=== PATIENT | female | born 1935 | race Caucasian/White ===

== ENCOUNTER 2016-11-17 06:01 | Day surgery (SDC) | payer MEDICARE, OTHER ==
--- NOTE | 2016-11-14 11:51 | RAD ---
EXAM DESCRIPTION: Chest,2 Views CLINICAL HISTORY: pre op COMPARISON: None FINDINGS: Two-view chest x-ray shows cardiomediastinal silhouette and pulmonary vasculature to be within normal limits. Moderate calcifications of the thoracic aorta with tortuosity of the aorta is seen. The lungs are normally aerated. Chronic appearing increased interstitial markings to the lungs are seen. Costophrenic angles are sharp. Mild spondylitic changes of the spine are noted. IMPRESSION: No radiographic evidence of acute cardiopulmonary disease. Electronically signed by: Fabiano Ashley MD 11/14/2016 11:50 AM [employer] BU[employer]
[2016-11-17] MEDS ORDERED: SODIUM CHL 0.9% 100ML MINI-BAG 100 ML IVPB ONE (06:55)
[2016-11-17] MEDS ORDERED: ceFAZolin SODIUM 1 GM VIAL ONE (06:55)
[2016-11-17] MEDS ORDERED: LACTATED RINGERS 1,000 ML ONE (06:55)
[2016-11-17] MEDS ORDERED: HEPARIN SODIUM (PORCINE) 10,000 UNITS/ML VIAL ONE (07:12)
[2016-11-17] MEDS ORDERED: BUPIVACAINE 0.25% W/EPI 50 ML VIAL INJ ONE (07:12)
[2016-11-17] MEDS ORDERED: CARBOXYMETHYLCELLULOSE 0.5% 0.4 ML UD ONE (08:00)
[2016-11-17] MEDS ORDERED: fentaNYL CITRATE INJ 50 MCG/ML AMP ONE (08:00)
[2016-11-17] MEDS ORDERED: ROCURONIUM BROMIDE 10 MG/ML VIAL ONE (08:00)
[2016-11-17] MEDS ORDERED: MORPHINE SULFATE INJ 10 MG/ML VIAL ONE (08:46)
--- NOTE | 2016-11-17 09:54 | OP ---
DATE OF PROCEDURE: 11/17/16 PREOPERATIVE DIAGNOSIS: 1. Symptomatic cholelithiasis. POSTOPERATIVE DIAGNOSIS: 1. Symptomatic cholelithiasis. 2. Chronic cholecystitis. PROCEDURE: 1. Laparoscopic cholecystectomy with intraoperative cholangiography using fluoroscopy. SURGEON: Davonte Garcia MD. BLOCK SORTER: None. ANESTHESIA: Local infiltration of 0.25% Marcaine with epinephrine and general endotracheal anesthesia. INDICATION: The patient is an 81-year-old female who has had right upper quadrant and right flank pain with bloating especially associated with fatty foods. She has had gallstones for a long time. These symptoms have recurred recently. The patient was brought to the Surgical Suite today for cholecystectomy after the risks, benefits and alternatives to the procedure were discussed and accepted. FINDINGS: The gallbladder wall was somewhat thickened. There was one large stone. Intraoperative cholangiography revealed free flow into the duodenum with no filling defects or strictures noted. No other significant pathology was identified in the abdomen. DESCRIPTION OF PROCEDURE: After adequate general endotracheal anesthesia was obtained, the patient was prepped and draped in the usual sterile manner. Surgical time-out was taken. At this point, the infraumbilical area was infiltrated with local anesthesia. A transverse incision was made and carried down through the subcutaneous tissue to the midline fascia. Traction sutures were placed on either side of the midline. A small incision was made in the midline fascia and the peritoneum was opened bluntly. Mary trocar was introduced under direct vision into the abdominal cavity and fixed in place with the traction sutures. CO2 was then insufflated until a pressure of 12 mmHg was reached and the abdomen was tympanitic in all four quadrants. When this was done, the laparoscope was introduced. The abdomen was inspected with the previously noted findings. The patient was then placed in reverse Trendelenburg position and the upper abdominal ports were placed under direct vision. The gallbladder was grasped, retracted anteriorly and laterally. The neck of the gallbladder was retracted laterally. The triangle of Calot was then explored using blunt dissection with the cystic duct and cystic artery identified and isolated. The cystic duct was hemoclipped once proximally. The cystic artery was hemoclipped twice proximally and once distally. A small incision was made in the cystic duct. With some difficulty, it was eventually cannulated. Cholangiograms revealed free flow into the duodenum with no filling defects or strictures noted with approximately 1.5 cm of duct left before the common bile duct. When the cholangiograms were noted to be within normal limits, the cystic duct catheter was removed. The cystic duct was hemoclipped three times distally and divided between the hemoclips. The cystic artery was divided. The gallbladder was then dissected free from the gallbladder bed of the liver using electrocautery. The gallbladder was removed from the infraumbilical port site in the usual manner under direct vision. When this was done, the subhepatic space and subphrenic space were irrigated copiously with saline. The effluent was noted to be clear. The jose hepatis was inspected and no bleeding or bile leak was identified. The upper abdominal ports were removed and good hemostasis was noted. At this point, the CO2, the laparoscope and the infraumbilical port were removed. The infraumbilical port site fascia was approximated with a single [id number] suture of 0 Vicryl. Subcutaneous tissue was irrigated with saline. Skin edges were approximated with 4-0 Vicryl subcuticular sutures, benzoin and Steri- Strips. Sterile dressings were applied. The patient was awakened and taken to the Recovery Room in stable condition. Estimated blood loss was less than 50 mL. All sponge, needle and instrument counts were correct. #[id number] [facility]
[2016-11-17 11:30] VITALS: BP 155/82; TEMP 98.2; O2SAT 97
[2016-11-17] MEDS ORDERED: ePHEDrine SULF 50 MG/ML IV ONE (12:00)
[2016-11-17] MEDS ORDERED: LABETALOL INJ 5 MG/ML VIAL IV ONE (12:00)
[2016-11-17] MEDS ORDERED: PROPOFOL 200 MG/20 ML VIAL IV ONE (12:00)
[2016-11-17] MEDS ORDERED: LIDOCAINE 1% 10 ML VIAL INJ ONE (12:00)
[2016-11-17] MEDS ORDERED: DEXAMETHASONE INJ 10 MG/ML VIAL IV ONE (12:00)
[2016-11-17] MEDS ORDERED: raNITIdine HCL INJ 25 MG/ML VIAL IV ONE (12:00)
== END 2016-11-17 11:05 | disposition home or self-care (01) ==
LOC: AMB 06:01
PROVIDERS: ATTEND Surgery
DX: K80.10 Calculus of gallbladder with chronic cholecystitis without obstruction (principal); G25.81 Restless legs syndrome; R94.31 Abnormal electrocardiogram [ECG] [EKG]; Z96.653 Presence of artificial knee joint, bilateral; Z88.8 Allergy status to other drugs, medicaments and biological substances; Z79.899 Other long term (current) drug therapy
CPT/HCPCS: 00790; 36415; 47563; 71020; 76000; 80053; 81001; 84132; 85025; 88304; J0690; J1100; J1644; J2270; J2780; J3010; J3490; J7050; J7120

== ENCOUNTER → 2017-03-08 | Outpatient (CLI) | payer MEDICARE, OTHER | END | disposition home or self-care (01) | LOC: GMAB 10:43 | PROVIDERS: ATTEND Family Medicine | DX: E03.9 Hypothyroidism, unspecified (principal) ==

== ENCOUNTER → 2018-08-06 | Outpatient (CLI) | payer MEDICARE, OTHER | LOC: GMAE 11:41 | PROVIDERS: ATTEND Family Medicine | DX: E03.9 Hypothyroidism, unspecified (principal) ==

== ENCOUNTER → 2019-02-10 | Outpatient (CLI) | payer MEDICARE, OTHER | LOC: GMAE 15:17 | PROVIDERS: ATTEND Family Medicine | DX: E53.8 Deficiency of other specified B group vitamins (principal); G60.9 Hereditary and idiopathic neuropathy, unspecified ==

== ENCOUNTER → 2019-02-13 | Outpatient (CLI) | payer MEDICARE, OTHER | LOC: GMAE 10:24 | PROVIDERS: ATTEND Family Medicine | DX: E53.8 Deficiency of other specified B group vitamins (principal) ==

== ENCOUNTER → 2019-08-14 | Outpatient (CLI) | payer MEDICARE, OTHER | LOC: GMAE 10:38 | PROVIDERS: ATTEND Family Medicine | DX: E53.8 Deficiency of other specified B group vitamins (principal); E03.9 Hypothyroidism, unspecified; E78.2 Mixed hyperlipidemia; Z79.899 Other long term (current) drug therapy ==

== ENCOUNTER → 2019-12-24 | Outpatient (CLI) | payer MEDICARE, OTHER ==
--- NOTE | 2019-12-24 17:44 | RAD ---
EXAM DESCRIPTION: Ribs,Left 3 x-ray Views CLINICAL HISTORY: 84 years Female, rib pain COMPARISON: None. FINDINGS: Calcified aortic arch. Left ribs appear intact. No rib fractures or bony destructive lesions on AP and oblique views. IMPRESSION: Negative for left rib fractures. Electronically signed by: Iker Barba MD 12/24/2019 5:42 PM CDT
--- NOTE | 2019-12-24 17:47 | RAD ---
EXAM DESCRIPTION: Ribs,Right 3 x-ray Views CLINICAL HISTORY: 84 years Female, rib pain COMPARISON: None. FINDINGS: Surgical clips in right axilla. Aortic arch is calcified. Bone detail films show no evidence of fracture or bony destructive lesion of the right ribs. Degenerative changes in right shoulder. IMPRESSION: Negative for fracture. Electronically signed by: Iker Barba MD 12/24/2019 5:46 PM CDT
== END ==
LOC: YCFC.O 16:40
PROVIDERS: ATTEND Family Medicine
DX: R07.81 Pleurodynia (principal); R30.9 Painful micturition, unspecified; G62.9 Polyneuropathy, unspecified

== ENCOUNTER → 2019-12-25 | Outpatient (CLI) | payer MEDICARE, OTHER ==
--- NOTE | 2019-12-25 11:07 | MRI ---
EXAM DESCRIPTION: Brain w/o Contrast: MRI. CLINICAL HISTORY: TIA COMPARISON: None. TECHNIQUE: Multiplanar, high-field MRI unit, multiple diffusion sequences, multiple conventional sequences without contrast. FINDINGS: None. Bilateral hyperintense foci of FLAIR and T2-weighted signal in the periventricular white matter mostly at the level of the ventricles and extending into the centrum semiovale more on the right than the left in the frontoparietal occipital lobes. Relative sparing of the temporal lobes. Larger, subcortical white matter, hyperintense foci in the inferior right frontal lobe and the posterior right frontal lobe at the level of the right ventricle. Smaller subcortical foci bilaterally near the vertices in the frontal and parietal lobes bilaterally. No hemorrhage, no cerebral edema, no midline shift.. Contiguous hyperintense signal posterior left basal ganglia. No hemorrhage, no cerebral edema, no mass-effect normal signal in the brainstem and cerebellar hemispheres. No hemorrhage, no cerebral edema, no mass-effect. Concordance of the diffusion and non-diffusion sequences with no diffusion restriction. Cortical sulci, ventricles, and other CSF spaces, and the subdural spaces are normally configured for patient's age. No effacement or displacement. No midline shift. No extra-axial hemorrhage. Normal flow signal void in the major vessels of the chicken [place] L[place]pez, and the venous sinuses. IACs are symmetric bilaterally. Normal signal in the bilateral mastoid air cells. No mass effect in the bilateral cerebellopontine angles. Pituitary gland occupies most of the sella. Base of the cerebellar tonsils is at the level of the foramen magnum. Paranasal sinuses are unremarkable.. The bony calvarium is intact. IMPRESSION: 1. Bilateral periventricular and subcortical white matter signal changes most likely related to age and cerebral microvascular disease. More focal signal changes in the right frontal lobe but no diffusion restriction indicating significant acute ischemia or infarction. No hemorrhage, no mass effect, no midline shift. 2. Remainder of the study is unremarkable with appearance of the brain physiologic for patient's age.. Electronically signed by: Min Rich MD 12/25/2019 11:06 AM CDT
== END ==
LOC: MRI 10:09
PROVIDERS: ATTEND Family Medicine
DX: G45.9 Transient cerebral ischemic attack, unspecified (principal); R90.82 White matter disease, unspecified

== ENCOUNTER 2020-01-06 13:16 | Emergency (ER) | payer MEDICARE, OTHER ==
[2020-01-06 13:29] VITALS: O2SAT 97
[2020-01-06] MEDS ORDERED: CHLORHEXIDINE GLUCONATE 4 % 15 ML UD TOP ONE (13:29)
[2020-01-06] MEDS ORDERED: NEOMYCIN-BACITRACIN-POLYMYXIN 0.9 GM UD TOP ONE (13:29)
--- NOTE | 2020-01-06 14:15 | CT ---
EXAM DESCRIPTION: Head CLINICAL HISTORY: fall COMPARISON: MRI head December 25, 2019 TECHNIQUE: Noncontrast transaxial CT images of the head are obtained from base to vertex. This exam was performed according to our departmental dose-optimization program, which includes automated exposure control, adjustment of the mA and/or kV according to patient size and/or use of iterative reconstruction technique. FINDINGS: The midline structures are not displaced. Sulci are age-appropriate. There are areas of decreased attenuation in the periventricular white matter and the white matter of the centrum semiovale. 10 mm focus of decreased attenuation lateral to the left basal ganglia likely represents prominent perivascular space or remote lacunar infarct on previous MRI. There is no evidence of mass, mass-effect, hydrocephalus, or acute intracranial hemorrhage. No abnormal extra axial fluid collection is seen. Bone windows show no evidence of depressed skull fracture. The visualized paranasal sinuses are unremarkable. IMPRESSION: 1. Age-appropriate atrophy with evidence of old small vessel ischemic type changes seen. 2. No acute abnormality is seen on noncontrast CT of the head. Electronically signed by: Fabiano Ashley MD 01/06/2020 2:14 PM CDT
--- NOTE | 2020-01-06 14:22 | RAD ---
EXAM DESCRIPTION: Knee,Left 1 or 2 Views CLINICAL HISTORY: 84 years Female, fall TECHNIQUE: 2 views of the left knee were performed. COMPARISON: None available. FINDINGS: The visualized bones appear well mineralized. No acute fracture or dislocation. Changes of total knee arthroplasty. Mild suprapatellar and infrapatellar soft tissue swelling is noted. IMPRESSION: Intact total knee arthroplasty. No acute traumatic abnormality. Electronically signed by: Jeanette Diaz MD 01/06/2020 2:21 PM CDT
--- NOTE | 2020-01-06 14:23 | RAD ---
EXAM DESCRIPTION: Elbow,Left 3 Views CLINICAL HISTORY: 84 years Female, fall COMPARISON: None available. FINDINGS: The visualized bones are poorly mineralized.No acute fracture or dislocation. Possible joint effusion. The soft tissues appear grossly unremarkable. IMPRESSION: Possible left elbow joint effusion. No acute bony abnormality. Electronically signed by: Jeanette Diaz MD 01/06/2020 2:21 PM CDT
--- NOTE | 2020-01-06 14:24 | RAD ---
EXAM DESCRIPTION: Hand,Right 2 Views CLINICAL HISTORY: fall COMPARISON: None Available. TECHNIQUE: AP, LATERAL, AND OBLIQUE FINDINGS: The visualized bones appear poorly mineralized. 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 Moderate to severe degenerative changes are identified in the proximal and distal interphalangeal joints of the digits, worse in the proximal interphalangeal joint of the third digit. Underlying inflammatory arthropathy cannot be completely excluded. The soft tissues appear grossly unremarkable. IMPRESSION: No acute traumatic abnormality of the right hand. Degenerative changes are identified throughout the right hand worse in the proximal interphalangeal joint of the third digit. Underlying inflammatory arthropathy cannot be completely excluded. Electronically signed by: Jeanette Diaz MD 01/06/2020 2:22 PM CDT
--- NOTE | 2020-01-06 14:28 | ED.PDOC ---
History of Present Illness - General Chief Complaint: Trauma Stated Complaint: fell in parking lot-skin tears to left arm Time Seen by Provider: 01/06/20 13:37 Source: patient Exam Limitations: no limitations - History of Present Illness Initial Comments: The patient sustained a mild abrasion to the anterior left knee, the right palm and a more extensive abrasion to the ulnar aspect of the proximal forearm on the left. She also apparently hit her head and has a small abrasion above the left eyebrow. No loss of consciousness. No neck pain. She moves all extremities well without significant difficulty. No laceration significant enough for repair. Skin tears were cleaned and reapproximated. Patient is alert and oriented. No acute distress. She has been ambulatory since the time. The patient has had more frequent falls lately due to her neuropathy. Timing/Duration: 1/2 hour Severity: mild Improving Factors: nothing Worsening Factors: nothing Associated Symptoms: denies symptoms Allergies/Adverse Reactions: Allergies Hydrocodone Allergy (Mild, Verified 11/14/16 11:00) Home Medications: Ambulatory Orders Clonazepam 2 mg PO QPM 11/14/16 Levothyroxine Sodium [Synthroid] 0.1 mg PO QAM 11/14/16 rOPINIRole HCL [Requip] 2 mg PO BEDTIME 11/14/16 Duloxetine HCl 60 mg PO DAILY 01/06/20 Review of Systems - Review of Systems Constitutional: States: no symptoms reported EENTM: States: no symptoms reported Respiratory: States: no symptoms reported Cardiology: States: no symptoms reported Gastrointestinal/Abdominal: States: no symptoms reported Genitourinary: States: no symptoms reported Musculoskeletal: States: no symptoms reported Skin: States: see HPI Neurological: States: no symptoms reported Endocrine: States: no symptoms reported All other Systems: No Change from Baseline Past Medical History (General) - Patient Medical History Hx Stroke: No Hx Congestive Heart Failure: No Hx Diabetes: No Hx Cancer: Yes - Breast Hx MRSA: No Surgical History: tonsillectomy, Hysterectomy - Vaccination History Hx Tetanus, Diphtheria Vaccination: Yes Hx Influenza Vaccination: No Hx Pneumococcal Vaccination: No - Social History Hx Tobacco Use: No Family Medical History - Family History Mother Family History: Unknown Living Status: Physical Exam - Physical Exam General Appearance: Alert, Comfortable, No apparent distress Eye Exam: bilateral normal Ears, Nose, Throat: hearing grossly normal, normal pharynx Neck: non-tender, full range of motion, supple Respiratory: no respiratory distress, no accessory muscle use Cardiovascular/Chest: normal peripheral pulses, no edema, other - Regular rate Peripheral Pulses: radial,right: 2+, radial,left: 2+ Gastrointestinal/Abdominal: non tender Rectal Exam: deferred Back Exam: no CVA tenderness, no vertebral tenderness Extremity: normal range of motion, no pedal edema, no calf tenderness, normal capillary refill Neurologic: oral and maxillofacial pathologist II-XII nml as tested, no motor/sensory deficits - Chronic pe ripheral neuropathy, alert, normal mood/affect, oriented x 3 Skin Exam: other - Abrasions and skin tears as above Comments: Vital Signs - 24 hr 01/06/20 13:24 Temperature 98.7 F Pulse Rate [ 90 Right Brachial] Respiratory 20 Rate Blood Pressure 157/89 [Right Arm] O2 Sat by Pulse 97 Oximetry Progress - Progress Progress: 01/06/20 14:29 The patient is a 84-year-old female presented emergency room after having tripped and fallen in the parking lot. She does have scattered abrasions which were cleaned and dressed. X-rays of the left knee, right hand, left elbow and CT scan of the head showed no obvious acute significant pathology. Patient is to ambulate carefully to prevent further falls. She may benefit from additional physical therapy to improve gait stability in the near future. ER warnings are given. Keep routine follow-up with primary care doctor. carlos akers [phone] - Results/Orders Results/Orders: X-rays of the left elbow show no evidence of any fracture. There may be a small joint effusion. Arthritic changes are noted. X-ray of the left knee shows no evidence of any acute bony pathology. No dislocation or fracture. Mild soft tissue swelling. X-ray of the right hand shows no evidence of any fracture or dislocation. Extensive arthritic changes are present. CT scan of the head shows no evidence of any acute intracranial pathology. No intracranial bleed. - EKG/XRAY/CT CT Ordered: Yes Departure - Departure Clinical Impression: Fall (on) (from) other stairs and steps, initial encounter, Abrasions of multiple sites, Gait instability, Physical deconditioning Disposition: Discharge to Home or Self Care Condition: Fair Departure Forms: ED Discharge - Pt. Copy, Patient Portal Self Enrollment Diet: regular diet Activity: increase activity as tolerated Referrals: Joe Romero MD [Primary Care Provider] - 1-2 Weeks Home Medications: Ambulatory Orders Clonazepam 2 mg PO QPM 11/14/16 Levothyroxine Sodium [Synthroid] 0.1 mg PO QAM 11/14/16 rOPINIRole HCL [Requip] 2 mg PO BEDTIME 11/14/16 Duloxetine HCl 60 mg PO DAILY 01/06/20 Additional Instructions: The patient is a 84-year-old female presented emergency room after having tripped and fallen in the parking lot. She does have scattered abrasions which were cleaned and dressed. X-rays of the left knee, right hand, left elbow and CT scan of the head showed no obvious acute significant pathology. Patient is to ambulate carefully to prevent further falls. She may benefit from additional physical therapy to improve gait stability in the near future. She is to discuss this with her primary care doctor. ER warnings are given. Keep routine follow-up with primary care doctor.
[2020-01-06 14:50] VITALS: BP 149/76; TEMP 98.2
== END 2020-01-06 14:49 | disposition home or self-care (01) ==
LOC: ER 13:16
DX: S80.212A Abrasion, left knee, initial encounter (principal); S60.511A Abrasion of right hand, initial encounter; S00.81XA Abrasion of other part of head, initial encounter; S50.812A Abrasion of left forearm, initial encounter; W10.9XXA Fall (on) (from) unspecified stairs and steps, initial encounter; Y92.481 Parking lot as the place of occurrence of the external cause

== ENCOUNTER → 2020-01-06 | Outpatient (CLI) | payer MEDICARE, OTHER | LOC: CANPRECLI → YCFC.O 12:55 | PROVIDERS: ATTEND Family Medicine | DX: R29.6 Repeated falls (principal) ==

== ENCOUNTER → 2020-05-04 | Outpatient (CLI) | payer MEDICARE, OTHER ==
--- NOTE | 2020-05-04 16:41 | RAD ---
EXAM DESCRIPTION: Ankle,Right 3 Views CLINICAL HISTORY: 84 years Female, RECURRENT FALLS COMPARISON: None. Findings: 3 views/radiographs Location: Right ankle No acute fracture or dislocation. Mild scattered degenerative changes. The talar dome is unremarkable. The ankle mortise is symmetric. No focal soft tissue swelling. IMPRESSION: No evidence of acute process in the right ankle. Electronically signed by: Adrián Youssef MD 05/04/2020 4:39 PM CDT
--- NOTE | 2020-05-04 16:42 | RAD ---
EXAM DESCRIPTION: Knee,Right Complete CLINICAL HISTORY: 84 years Female, RECURRENT FALLS COMPARISON: None. Findings: 3 view(s)/radiograph(s) Right total knee arthroplasty. No hardware complication. No acute fracture or dislocation. No focal soft tissue swelling. No significant joint effusion. Vascular calcifications. Osteopenia. IMPRESSION: Right total knee arthroplasty. No hardware competition. Electronically signed by: Adrián Youssef MD 05/04/2020 4:40 PM CDT
== END | disposition home or self-care (01) ==
LOC: YCFC.O 10:23
PROVIDERS: ATTEND Family Medicine
DX: R35.0 Frequency of micturition (principal); R29.6 Repeated falls

== ENCOUNTER → 2020-09-29 | Outpatient (CLI) | payer MEDICARE, OTHER | LOC: YCFC.O 12:54 | PROVIDERS: ATTEND Family Medicine | DX: N39.0 Urinary tract infection, site not specified (principal) ==

== ENCOUNTER → 2020-10-05 | Outpatient (CLI) | payer MEDICARE, OTHER | LOC: YCFC.O 10:42 | PROVIDERS: ATTEND Family Medicine | DX: N39.0 Urinary tract infection, site not specified (principal) ==